=== PATIENT | female | born 1965 | race Caucasian/White ===

== ENCOUNTER 2023-05-21 18:00 | Emergency (ER) | payer MEDICARE ==
[2023-05-21] MEDS ORDERED: predniSONE 20 MG TAB ONE (19:24)
[2023-05-21 20:11] LABS: SARS-CoV-2 NAA Rapid Test DETECTED (NotDetected)
== END 2023-05-21 20:40 | disposition home or self-care (01) ==
LOC: CSHERS 18:00
DX: U07.1 COVID-19 (principal)
CPT/HCPCS: 0240U; 71045; J7512

== ENCOUNTER 2024-03-10 13:50 | Emergency (ER) | payer MEDICARE, OTHER ==
[2024-03-10] MEDS ORDERED: Famotidine/PF 20 mg/2ml Vial ONE (14:12)
[2024-03-10] MEDS ORDERED: methylPREDNISolone Sod Succ/PF 125 MG/2 ML VIAL ONE (14:12)
[2024-03-10] MEDS ORDERED: diphenhydrAMINE 50 MG/ML VIAL ONE (14:12)
== END 2024-03-10 15:47 | disposition home or self-care (01) ==
LOC: CSHERS 13:50
DX: T78.40XA Allergy, unspecified, initial encounter (principal); I10 Essential (primary) hypertension
CPT/HCPCS: 96374; 96375; 99282; J1200; J2919; J3490